=== PATIENT | female | born 1985 | race Two or more races ===

== ENCOUNTER 2018-08-27 23:50 | Emergency (ER) | payer BC ==
[~2018-08-27] VITALS: Ht 170.2 cm; Wt 98.6 kg
[2018-08-27 23:58] VITALS: BP 132/85
--- NOTE | 2018-08-28 00:38 | NUR ---
PT TO CT SCAN
--- NOTE | 2018-08-28 01:09 | NUR ---
PT BACK FROM CT AT BEDSIDE. PT AWAITNG CT RESULTS AND ERP RECHECK.
--- NOTE | 2018-08-28 02:22 | NUR ---
PT AWAITING DR WOOD CONSULT. PT WITH AT BEDSIDE AND IN NO CURRENT DISTRESS.
== END 2018-08-28 04:07 | disposition home or self-care (01) ==
LOC: ED 08-28 01:13
DX: S02.40FA Zygomatic fracture, left side, initial encounter for closed fracture (principal); S05.12XA Contusion of eyeball and orbital tissues, left eye, initial encounter; S05.11XA Contusion of eyeball and orbital tissues, right eye, initial encounter; V19.88XA Pedal cyclist (driver) (passenger) injured in other specified transport accidents, initial encounter; Y93.89 Activity, other specified; Y92.89 Other specified places as the place of occurrence of the external cause; Y99.8 Other external cause status
CPT/HCPCS: 70486; 99284